=== PATIENT | male | born 1995 | race African-American/Black ===

== ENCOUNTER 2016-11-24 12:39 | Outpatient (RCR) | payer MEDICARE, MEDICAID ==
[~2016-11-24 12:39] MED LIST: BACTRIM DS 8001 TAB; FLOXIN OTIC DROP5 ML; LEVAQUIN 5500 MG/TA1 PO; LYRICA 50MG CAP50 MG; NORCO 325 MG-51 TAB PO; OXY IR5 MG; PROVENTIL0.09 MG/A1 IH; PULMICORT180 MCG/A1 IH; SINGULAIR; ZYRTEC 10MG10 MG
== END 2017-02-22 | disposition home or self-care (01) ==
LOC: WSST
DX: R13.10 Dysphagia, unspecified (principal); G71.0 Muscular dystrophy
CPT/HCPCS: G8996-GN; G8997-GN

== ENCOUNTER 2018-05-04 20:35 | Emergency (ER) | payer MEDICARE, MEDICAID ==
[~2018-05-04] VITALS: Ht 172.7 cm; Wt 70.5 kg
[2018-05-04 20:37] VITALS: BP 169/105; TEMP 98.2
[2018-05-04] MEDS ORDERED: PAMELOR 25MG25 MG PO (20:54)
[2018-05-04 21:23] LABS: BASO % 0.7 % (0.0-2.0); EOS % 0.4 % (0-4.0); GRAN % 52.9 % (42.2-75.2); HEMATOCRIT 44.1 % (42.0-52.0); HEMOGLOBIN 15.3 g/dl (13.5-18.0); LYMPH # 2.1 (1.2-3.4); LYMPH % 36.7 % (20.0-51.0); MEAN CELL VOLUME 88 fl (80.0-100.0); MEAN CORPUSCULAR HEMOGLOBIN 31 pg (27.0-31.0); MEAN CORPUSCULAR HGB CONC 35 g/dl (33.0-37.0); MEAN PLATELET VOLUME 10.1 fl (7.4-10.4); MONO # 0.5 (0.1-0.6); MONO % 8.9 % (1.7-9.3); PLATELET COUNT 288 K/mm3 (130-400); RED BLOOD COUNT 4.99 M/mm3 (4.20-5.60); REDCELL DISTRIBUTION WIDTH-CV 12.7 % (11.5-14.5)
[2018-05-04 21:34] LABS: ALBUMIN 3.8 gm/dL (3.5-5.0); BILIRUBIN,TOTAL 0.5 mg/dL (0.0-1.0); CALCIUM 9.1 mg/dL (8.4-10.2); CREATININE, serum 0.57 mg/dL (0.66-1.25); POTASSIUM 3.3 mmol/L (3.4-5.0); TOTAL PROTEIN 6.9 gm/dL (6.4-8.2)
[2018-05-04 22:11] LABS: COLLECTION METHOD CLEAN CATCH
[2018-05-04 22:16] LABS: MUCOUS Present /lpf; PH 7 (5-8); SQUAMOUS EPITHELIAL None Seen /hpf; URINE APPEARANCE Clear; URINE BACTERIA None Seen /hpf; URINE BILIRUBIN Negative (NEGATIVE); URINE BLOOD Negative (NEGATIVE); URINE COLOR Straw; URINE GLUCOSE Negative (NEGATIVE); URINE KETONE Negative (NEGATIVE); URINE LEUKOCYTE ESTERASE Negative (NEGATIVE); URINE NITRATE Negative (NEGATIVE); URINE PROTEIN(semi-quant) Negative (NEGATIVE); URINE RBC 0-2 /hpf; URINE UROBILINOGEN Negative (NEGATIVE)
[2018-05-04] MEDS ORDERED: LIDODERM 5% PATC1 EA TP (22:30)
[2018-05-04 23:29] VITALS: PULSE 83
== END 2018-05-04 23:31 | disposition home or self-care (01) ==
LOC: COL.ER 20:35
PROVIDERS: Emergency Medicine
DX: K22.6 Gastro-esophageal laceration-hemorrhage syndrome (principal); M54.2 Cervicalgia; R11.10 Vomiting, unspecified
CPT/HCPCS: J0780; J1885; J7030

== ENCOUNTER 2019-06-26 19:22 | Emergency (ER) | payer MEDICARE, MEDICAID ==
[~2019-06-26] VITALS: Ht 170.2 cm; Wt 72.7 kg
[~2019-06-26 19:22] MED LIST changes: +LIDODERM 5% PATC1 EA TP; +PAMELOR 25MG25 MG PO
[2019-06-26 19:33] VITALS: TEMP 98.4
[2019-06-26] MEDS ORDERED: ROXICODONE 55 MG/TAB PO (21:56)
[2019-06-26] MEDS ORDERED: FLEXERIL 1010 MG/TAB PO (21:56)
[2019-06-26] MEDS ORDERED: ADDERALL10 MG PO (21:56)
[2019-06-26] MEDS ORDERED: DOXYCYCLINE 10100 MG PO (21:56)
[2019-06-26] MEDS ORDERED: MOBIC15 MG PO (21:57)
[2019-06-26] MEDS ORDERED: PEPCID 20MG TAB20 MG PO (21:57)
[2019-06-26] MEDS ORDERED: NORCO 325 MG-51 TAB PO (22:46)
[2019-06-27 00:07] VITALS: BP 128/94; PULSE 92
== END 2019-06-27 00:07 | disposition home or self-care (01) ==
LOC: COL.ER 19:22
DX: M54.9 Dorsalgia, unspecified (principal); J45.909 Unspecified asthma, uncomplicated

== ENCOUNTER 2020-08-19 09:30 | Outpatient (RCR) | payer MEDICARE, MEDICAID ==
[~2020-08-19 09:30] MED LIST changes: +ADDERALL10 MG PO; +DOXYCYCLINE 10100 MG PO; +FLEXERIL 1010 MG/TAB PO; +MOBIC15 MG PO; +PEPCID 20MG TAB20 MG PO; +ROXICODONE 55 MG/TAB PO
== END 2020-08-20 | disposition home or self-care (01) ==
LOC: WSPT
DX: M79.18 Myalgia, other site (principal); R26.9 Unspecified abnormalities of gait and mobility; R53.1 Weakness

== ENCOUNTER 2020-11-04 10:00 | Outpatient (RCR) | payer MEDICARE, MEDICAID | END 2020-11-24 | disposition home or self-care (01) | LOC: WSPT | DX: M79.10 Myalgia, unspecified site (principal); R26.9 Unspecified abnormalities of gait and mobility; R53.1 Weakness ==

== ENCOUNTER 2021-01-21 15:41 | Observation (INO) | payer MEDICARE, MEDICAID ==
[~2021-01-21] VITALS: Ht 170.2 cm; Wt 71.8 kg
[2021-01-21 16:01] LABS: BASO % 0.3 % (0.0-2.0); EOS % 0.3 % (0-4.0); GRAN # 10.6 (1.4-6.5); GRAN % 89.5 % (42.2-75.2); HEMATOCRIT 50.5 % (42.0-52.0); HEMOGLOBIN 17.1 g/dl (13.5-18.0); LYMPH # 0.5 (1.2-3.4); LYMPH % 3.8 % (20.0-51.0); MEAN CELL VOLUME 91 fl (80.0-100.0); MEAN CORPUSCULAR HEMOGLOBIN 31 pg (27.0-31.0); MEAN CORPUSCULAR HGB CONC 34 g/dl (33.0-37.0); MEAN PLATELET VOLUME 10.1 fl (7.4-10.4); MONO # 0.7 (0.1-0.6); MONO % 5.7 % (1.7-9.3); PLATELET COUNT 291 K/mm3 (130-400); RED BLOOD COUNT 5.56 M/mm3 (4.20-5.60); REDCELL DISTRIBUTION WIDTH-CV 12.8 % (11.5-14.5)
[2021-01-21 16:13] LABS: ALBUMIN 4.4 gm/dL (3.5-5.0); BILIRUBIN,TOTAL 1.2 mg/dL (0.0-1.0); CALCIUM 9.7 mg/dL (8.4-10.2); CREATININE, serum 0.53 (0.66-1.25); POTASSIUM 4.4 mmol/L (3.4-5.0); TOTAL PROTEIN 7.4 gm/dL (6.4-8.2)
[2021-01-21 18:48] LABS: COLLECTION METHOD CLEAN CATCH
[2021-01-21 18:59] LABS: MUCOUS Present /lpf; PH 7 (5-8); SQUAMOUS EPITHELIAL None Seen /hpf; URINE APPEARANCE Clear; URINE BACTERIA None Seen /hpf; URINE BILIRUBIN Negative (NEGATIVE); URINE BLOOD Negative (NEGATIVE); URINE COLOR Yellow; URINE GLUCOSE Negative (NEGATIVE); URINE KETONE 1+ (NEGATIVE); URINE LEUKOCYTE ESTERASE Negative (NEGATIVE); URINE NITRATE Negative (NEGATIVE); URINE PROTEIN(semi-quant) Negative (NEGATIVE); URINE RBC 0-2 /hpf; URINE UROBILINOGEN Negative (NEGATIVE)
[2021-01-21] MEDS ORDERED: PROVENTIL0.09 MG/A1 IH (19:37)
[2021-01-21] MEDS ORDERED: ATIVAN 0.50.5 MG/TAB PO (19:38)
[2021-01-21] MEDS ORDERED: ZYRTEC 10MG10 MG PO (19:39)
[2021-01-21] MEDS ORDERED: FLEXERIL5 MG PO (19:40)
[2021-01-21] MEDS ORDERED: SINGULAIR 110 MG/TAB PO (19:40)
[2021-01-21] MEDS ORDERED: MOBIC15 MG PO (19:40)
[2021-01-21] MEDS ORDERED: PAMELOR50 MG PO (19:40)
[2021-01-21] MEDS ORDERED: FLONASEALLERGY NS (19:40)
[2021-01-21] MEDS ORDERED: ROXICODONE 55 MG/TAB PO (19:41)
[2021-01-21] MEDS ORDERED: LYRICA 100MG C100 M1 PO (19:41)
[2021-01-21 21:33] VITALS: BP 130/82; PULSE 86; TEMP 98.2
--- NOTE | 2021-01-21 22:48 | NUR ---
2114- PT ADMIT FROM ER W C/O NAUSEA AND VOMITING SINCE 9AM. OCC HAS SOME RT LOWER ABD PAIN AND STATES TAKES DOXCYCLINE? FOR THIS HOWEVER WONDERS IF ITS MAKING HIM SICK SINCE IT WAS RECENTLY RESTARTED. STATES HIS VOMIT WAS COFFEE GROUND IN LOOKS AND HAD BLOODY STOOL. CLEAR VOMIT OBS HERE IN ER THIS EVENING. NO VOMITING SINCE BEING ON UNIT. HE DID EAT PEPERS BEFORE BEDTIME AND TOOK A OXYCODONE ON A EMPTY STOMACH ABOUT 2AM. ASSESSMENT AND VITALS OBTAINED. ORDERS INITATED. IV FLUIDS, SCD, PM MEDS PROVIDED. PLAN OF CARE DISCUSSED. IS SLOW W SPEECH RESPONSE BUT APPRO AND PLEASENT. CALL LIGHT W IN REACH. UP TO BR W NURSE ASST. LIGHTS DOWN AND EYES CLOSED WHEN LEAVING ROOM.
[2021-01-22 00:13] VITALS: BP 131/65; PULSE 106; TEMP 99
[2021-01-22 04:36] VITALS: BP 140/61; PULSE 103; TEMP 98.3
--- NOTE | 2021-01-22 04:48 | NUR ---
PT RESTED MOST OF THE NIGHT. DID AMBULATE WITH WALKER TO BR W DISPATCH CLERK AND FELT NAUSEATED. TX OF ZOFRAN 4MG IV. DENIES PAIN. NEEDS MET.
[2021-01-22 06:35] LABS: BASO % 0.2 % (0.0-2.0); EOS % 0.6 % (0-4.0); GRAN # 4.1 (1.4-6.5); GRAN % 74.6 % (42.2-75.2); HEMATOCRIT 42.5 % (42.0-52.0); LYMPH # 0.8 (1.2-3.4); LYMPH % 14.9 % (20.0-51.0); MEAN CELL VOLUME 92 fl (80.0-100.0); MEAN CORPUSCULAR HEMOGLOBIN 30 pg (27.0-31.0); MEAN CORPUSCULAR HGB CONC 33 g/dl (33.0-37.0); MEAN PLATELET VOLUME 10.6 fl (7.4-10.4); MONO # 0.5 (0.1-0.6); MONO % 9.7 % (1.7-9.3); PLATELET COUNT 256 K/mm3 (130-400); RED BLOOD COUNT 4.64 M/mm3 (4.20-5.60); REDCELL DISTRIBUTION WIDTH-CV 13.1 % (11.5-14.5)
[2021-01-22 06:47] LABS: HEMOGLOBIN 14.1 g/dl (13.5-18.0)
[2021-01-22 06:52] LABS: CALCIUM 8.9 mg/dL (8.4-10.2); CREATININE, serum 0.61 (0.66-1.25); POTASSIUM 3.9 mmol/L (3.4-5.0)
[2021-01-22 08:21] VITALS: BP 121/65; PULSE 107; TEMP 98.6
--- NOTE | 2021-01-22 09:00 | NUR ---
Patient sitting up in bed, stating that he is feeling nauseous. Nurse brought out the BSC and assisted patient. Patient A&Ox3. VSS. IV CDI, fluids infusing. Nurse encouraging patient to eat and to call nursing staff if still feeling nauseous. Call light within reach.
--- NOTE | 2021-01-22 10:15 | NUR ---
LISET met with the patient to discuss discharge plan. The patient states that he lives with his two sisters and uncle in [place]. He states that his mother just . The patient has muscular dystrophy. He reports independence with ADLs and has a cane and wheelchair. The patient's PCP is Dr. Consuelo Dozier and he receives his medications from [facility]. The patient states that he may have a DPOA-HC and that it would be his sister, Susana (ph#[phone]). The patient states that he has some concerns about his dizziness and nausea when he returns home. LISET contacted the patient's sister, Susana, to review the above information. Susana reports that she lives in [place]. Their mother last week. The patient had been living with his uncle and two sisters, but since his mother he has been living alone. She states that they want to get the patient into a handicap accessible apartment/home. They have not started looking or applying for public housing yet. LISET informed Susana of [facility] and [employer]. Susana reports that the patient does not have a DPOA-HC. She states that the patient's father is still alive, but has not been in contact with him since he was [id number]. The patient has four sisters, one is adopted: Susana, Nasima, Nina, and Mackenzie. Susana reports that it will be the patient's decision on whether he returns to the house in [place] or wants to stay with one of them. She states that she also takes care of their disabled cousin. LISET to ask the clinical team to order PT/OT. LISET to continue to follow.
[2021-01-22 11:13] VITALS: BP 138/80; PULSE 103; TEMP 98.3
[2021-01-22 17:19] VITALS: BP 134/83; PULSE 102; TEMP 97.9
--- NOTE | 2021-01-22 17:44 | NUR ---
Patient has had complaints of nausea throughout the shift, nausea medication given when requested. A&O, VSS. IV CDI, fluids infusing. Patient stating that he is dizzy when ambulating, nursing staff using BS. Reports only having a headache, denies other pain. Patient on contact precautions. Nurse instructed patient to call for assistance as needed. Call light within reach. Bed alarm on
[2021-01-22 19:44] VITALS: BP 147/105; PULSE 116; TEMP 97.8
--- NOTE | 2021-01-22 21:01 | NUR ---
PT SETTING UP ON EDGE OF BED, ASSESSMENT AND VITALS COMPLETE. C/O FRANCES RATES PAIN 4/10. GETTING DIZZY WHEN STANDING. COMMODE AT BEDSIDE. C/O SOME NAUSEA STILL THIS EVENING BUT IS ABLE TO TOLERATE SOME DINNER. WILL BE NPO AT MIDNIGHT FOR EDG IN AM. PLAN OF CARE DISCUSSED WITH PT. NEEDS MET. ON CONTACT PRECAUTIONS.
[2021-01-23] VITALS (13 sets, daily range): BP systolic 125–144; BP diastolic 60–90; PULSE 85–98; TEMP 97.7–98.8
--- NOTE | 2021-01-23 04:54 | NUR ---
PT SLEPT MOST OF THE NIGHT WO INCIDENT. DID NOT COMPLAIN OF NAUSEA EXCEPT ONCE AT BEGINING OF SHIFT. NPO FOR EGD THIS AM. CLEAN GOWN ON. NEED TO COLLECT STOOL SAMPLE, NO STOOL YET. IV FLUIDS RUNNING PER ORDER OF 30CC NS. LR BAG HANGING AT BEDSIDE FOR SUPERVISOR FORMING DEPARTMENT. NEEDS MET.
--- NOTE | 2021-01-23 07:20 | NUR ---
Patient to EGD by samuel
[2021-01-23 07:24] LABS: HEMATOCRIT 42.3 % (42.0-52.0); HEMOGLOBIN 13.8 g/dl (13.5-18.0); MEAN CELL VOLUME 94 fl (80.0-100.0); MEAN CORPUSCULAR HEMOGLOBIN 31 pg (27.0-31.0); MEAN CORPUSCULAR HGB CONC 33 g/dl (33.0-37.0); MEAN PLATELET VOLUME 10.9 fl (7.4-10.4); PLATELET COUNT 269 K/mm3 (130-400)
[2021-01-23 07:40] LABS: BILIRUBIN,TOTAL 0.6 mg/dL (0.0-1.0); CALCIUM 9.3 mg/dL (8.4-10.2); CREATININE, serum 0.63 (0.66-1.25); POTASSIUM 3.8 mmol/L (3.4-5.0); TOTAL PROTEIN 6.6 gm/dL (6.4-8.2)
--- NOTE | 2021-01-23 08:35 | NUR ---
Patient up to room from EGD.
--- NOTE | 2021-01-23 11:41 | NUR ---
Patient up to BSC with x1 assist and walker. Orthostatic BP charted at this time. Patient states he feels light headed and dizzy when changing positions. Denies further needs at this time.
--- NOTE | 2021-01-23 15:09 | NUR ---
OT recommends home. PT recommends plan to return home with home health depending on progress. SW met with the patient discuss their recommendation and review d/c plan and possibly needing a FWW. The patient states that he does have a FWW. He reports that he is feeling better and that he could return to his house by himself upon discharge. SW discussed getting home health services set up for alf/OT/PT. The patient was open to home health and was agreeable to [facility]. LISET contacted and faxed a referral to Lilly at [facility]. Awaiting screen. LISET attempted to contact and update the patient's sister, Susana. Her voicemail was not set up and LISET was unable to leave a message.
--- NOTE | 2021-01-23 16:44 | NUR ---
ST in with patient.
--- NOTE | 2021-01-23 18:25 | NUR ---
Patient doing well throughout the day. has been up ambulating to restroom with SBA and walker, steady gait. Patient states mild headach this afternoon, tylenol given per orders. States he does not feel as dizzy as he did early this AM. Patient passing gas; no BM. Tolerating diet without difficulties. Denies further needs at this time. Will report off to manager shift.
[2021-01-24 00:10] VITALS: BP 144/72; PULSE 93; TEMP 98.3
[2021-01-24 04:26] VITALS: BP 124/72; PULSE 89; TEMP 97.6
[2021-01-24 06:38] LABS: HEMATOCRIT 43.7 % (42.0-52.0); HEMOGLOBIN 14.7 g/dl (13.5-18.0); MEAN CELL VOLUME 91 fl (80.0-100.0); MEAN CORPUSCULAR HEMOGLOBIN 31 pg (27.0-31.0); MEAN CORPUSCULAR HGB CONC 34 g/dl (33.0-37.0); MEAN PLATELET VOLUME 10.2 fl (7.4-10.4); PLATELET COUNT 296 K/mm3 (130-400); RED BLOOD COUNT 4.78 M/mm3 (4.20-5.60)
[2021-01-24 06:49] LABS: CALCIUM 9.6 mg/dL (8.4-10.2); CREATININE, serum 0.6 (0.66-1.25); POTASSIUM 3.5 mmol/L (3.4-5.0)
[2021-01-24 07:00] VITALS: BP 133/86; PULSE 83; TEMP 98.5
--- NOTE | 2021-01-24 08:00 | NUR ---
Patient laying in bed resting. Easily awakened with verbal command, denies pain and discomfort. A&Ox3. IV CDI. Contact precautions in place. No further needs expressed from the patient. Nurse instructed patient to call for assistance with ambulation. Call light within reach
[2021-01-24 12:00] VITALS: BP 153/83; PULSE 99; TEMP 98.5
[2021-01-24 15:21] VITALS: BP 146/94; PULSE 101; TEMP 98.4
--- NOTE | 2021-01-24 17:43 | NUR ---
Patient rested most of the shift. VSS. IV CDI, only complaints of a headache, tylenol given when requested. Contact precautions in place. Call light within reach. No further needs expressed from the patient.
[2021-01-24 19:11] VITALS: BP 118/104; PULSE 100; TEMP 97.4
--- NOTE | 2021-01-24 20:19 | NUR ---
Patient is awake, alert, oriented x 4, telemetry in use, independent in adls, denies pain, telemetry patches/batteries changed, updated patient on plan of care, no c/o n,v,d. will continue to monitor.
[2021-01-25] VITALS (7 sets, daily range): BP systolic 123–151; BP diastolic 76–90; PULSE 84–112; TEMP 97.4–99.1
[2021-01-25 09:22] LABS: BASO % 0.5 % (0.0-2.0); EOS # 0.1 (0.0-0.7); EOS % 1.4 % (0-4.0); GRAN # 3.4 (1.4-6.5); GRAN % 59.2 % (42.2-75.2); HEMATOCRIT 44.4 % (42.0-52.0); HEMOGLOBIN 15.2 g/dl (13.5-18.0); LYMPH # 1.5 (1.2-3.4); LYMPH % 26.6 % (20.0-51.0); MEAN CELL VOLUME 90 fl (80.0-100.0); MEAN CORPUSCULAR HEMOGLOBIN 31 pg (27.0-31.0); MEAN CORPUSCULAR HGB CONC 34 g/dl (33.0-37.0); MEAN PLATELET VOLUME 10.3 fl (7.4-10.4); MONO # 0.7 (0.1-0.6); MONO % 12.1 % (1.7-9.3); PLATELET COUNT 310 K/mm3 (130-400); RED BLOOD COUNT 4.91 M/mm3 (4.20-5.60); REDCELL DISTRIBUTION WIDTH-CV 12.8 % (11.5-14.5)
[2021-01-25 09:34] LABS: ALBUMIN 4.4 gm/dL (3.5-5.0); BILIRUBIN,TOTAL 0.5 mg/dL (0.0-1.0); CALCIUM 9.6 mg/dL (8.4-10.2); CREATININE, serum 0.58 (0.66-1.25); POTASSIUM 3.6 mmol/L (3.4-5.0); TOTAL PROTEIN 7.2 gm/dL (6.4-8.2)
[2021-01-25] MEDS ORDERED: ZOFRAN 4MG T4 MG/TAB PO (10:27)
[2021-01-25] MEDS ORDERED: ANTIVERT 25MG25 MG PO (10:27)
[2021-01-25] MEDS ORDERED: PROTONIX 40MG T40 MG PO (10:33)
--- NOTE | 2021-01-25 14:12 | NUR ---
LISET informed that patient was to be discharged today, but did not have a ride home. LISET met with patient and patient stated that he did not need a ride as he already had a ride home, but was informed by that he could not go home if there was not going to be anyone at the home with him this evening. LISET met with nurse to inform her of the information and she stated that she would speak to Dr in regards to patient's information relayed. LISET will continue to follow and assist with following up with [facility] to receive response in regards to services.
--- NOTE | 2021-01-25 18:14 | NUR ---
PT WAS SUPPOSED TO DISCHARGE TODAY, HOWEVER, THERE ARE SOME HOME ISSUES WITH THE PATIENT GOING HOME ALONE. THE SISTER THAT THE PATIENT HAS BEEN LIVING WITH IS NO LONGER GOING TO BE ABLE TO HAVE HIM LIVE WITH HER, AND SO THE PATIENT IS MOVING IN WITH HIS OTHER SISTER. THERE IS DISCUSSION OF THE PATIENT MOVING INTO A SKILLED NURSING SETTING, HOWEVER, THE SISTER HAS YET TO RESEARCH THESE OPTIONS. THE PATIENT WAS SET TO DISCHARGE, AND HE TOLD US AFTER WE DISCONTINUED HIS IV THAT HE WOULD NEED A RIDE HOME, AND THAT HE WAS CONCERNED BECAUSE THE DOCTOR TOLD HIM HE WAS NOT TO BE HOME ALONE. SW WILL NEED TO DISCUSS ISSUES WITH THE FAMILY BEFORE DISCHARGING TOMORROW. THERE ARE NO OTHER CONCERNS AT THIS TIME. CALL LIGHT IS WITHIN REACH, AND BED ALARM IS ON.
--- NOTE | 2021-01-25 20:28 | NUR ---
Awake, alert, oriented x 4, able to make needs known, denies c/o at this time, patient updated on plan of care - anticipating d/c home tomorrow.
--- NOTE | 2021-01-25 20:37 | NUR ---
PATIENT HAS ORDER FOR IV PROTONIX 40MG BID. NO IV ACCESS PATIENT WAS SUPPOSE TO DC HOME THIS AM. CALL TO HOSPITALIST. ARIADNE FOR NO IV ACCESS AND WILL CHANGE PROTONIX TO ORAL ADMINISTRATION.
--- NOTE | 2021-01-25 23:17 | NUR ---
Resting quietly, no c/o at this time, uses call galvez appropriately, denies pain, uses walker with SBA to bathroom, good appetite, will continue to monitor.
[2021-01-26 04:14] VITALS: BP 138/76; PULSE 103; TEMP 98.2
[2021-01-26 06:48] LABS: BASO % 0.5 % (0.0-2.0); EOS # 0.1 (0.0-0.7); EOS % 1.4 % (0-4.0); GRAN # 3.3 (1.4-6.5); GRAN % 55.8 % (42.2-75.2); HEMATOCRIT 44.5 % (42.0-52.0); HEMOGLOBIN 14.8 g/dl (13.5-18.0); LYMPH # 1.7 (1.2-3.4); LYMPH % 29.4 % (20.0-51.0); MEAN CELL VOLUME 91 fl (80.0-100.0); MEAN CORPUSCULAR HEMOGLOBIN 30 pg (27.0-31.0); MEAN CORPUSCULAR HGB CONC 33 g/dl (33.0-37.0); MEAN PLATELET VOLUME 10.4 fl (7.4-10.4); MONO # 0.7 (0.1-0.6); MONO % 12.6 % (1.7-9.3); PLATELET COUNT 309 K/mm3 (130-400); RED BLOOD COUNT 4.89 M/mm3 (4.20-5.60); REDCELL DISTRIBUTION WIDTH-CV 12.8 % (11.5-14.5)
--- NOTE | 2021-01-26 07:00 | NUR ---
RECEIVED REPORT ON PT. ASSUMED CARE OF PT AT THIS TIME.
[2021-01-26 07:02] LABS: ALBUMIN 4.3 gm/dL (3.5-5.0); BILIRUBIN,TOTAL 0.5 mg/dL (0.0-1.0); CALCIUM 9.8 mg/dL (8.4-10.2); CREATININE, serum 0.7 (0.66-1.25); POTASSIUM 3.7 mmol/L (3.4-5.0)
[2021-01-26 07:55] VITALS: BP 138/97; PULSE 106; TEMP 98.9
--- NOTE | 2021-01-26 10:00 | NUR ---
PT'S SISTER AT BEDSIDE FOR TRANSPORTATION HOME. PT'S HAS DISCHARGE INSTRUCTIONS AT BEDSIDE FROM YESTERDAY. REVIEWED MEDICATIONS AGAIN AND PT HAS MADE FOLLOW UP APPT. NO IV IN PLACE UPON DISCHARGE AND TELEMETRY OFF. DR. ALCALA AT BEDSIDE SPEAKING WITH PT AND STATES PT IS READY FOR DISCHARGE. PT DEPARTED VIA W/C WITH SISTER.
--- NOTE | 2021-01-26 10:30 | NUR ---
LISET attended clinical rounds. The patient's sister, Susana, was at bedside. The patient is ready to d/c today. LISET followed up with the patient and Susana. Susana reports that she owns and lives in a duplex and the plan is for the patient to stay in the duplex, so that she can check in on him. She reports that she plans on going to [employer] to get an application to be able to get the patient a handicap accessible apartment. The patient reports that he is still open to home health from [facility]. LISET followed up with Lilly at [facility]. Lilly reports that they are able to accept the patient. LISET informed Lilly of the address change. The patient is to discharge today, 01/26, to his sister's duplex in [place] and home health services from [facility] for longterm/PT/OT. LISET faxed d/c orders to [facility]. No additional needs at this time.
== END 2021-01-26 10:15 | disposition home or self-care (01) ==
LOC: COL.ER 15:41 → MEDICAL 20:48
PROVIDERS: Emergency Medicine; Family Medicine; Nurse Practitioner Family; Physician Assistant; ADMIT Hospitalist
DX: A08.11 Acute gastroenteropathy due to Norwalk agent (principal); K92.0 Hematemesis; J45.909 Unspecified asthma, uncomplicated; G71.00 Muscular dystrophy, unspecified; G89.29 Other chronic pain; D72.829 Elevated white blood cell count, unspecified; R74.01 Elevation of levels of liver transaminase levels; R00.0 Tachycardia, unspecified; R13.10 Dysphagia, unspecified; R55 Syncope and collapse; F32.9 Major depressive disorder, single episode, unspecified; F41.9 Anxiety disorder, unspecified; F90.9 Attention-deficit hyperactivity disorder, unspecified type; Z20.822 Contact with and (suspected) exposure to COVID-19; Z79.891 Long term (current) use of opiate analgesic; Z79.899 Other long term (current) drug therapy; Z88.1 Allergy status to other antibiotic agents
CPT/HCPCS: 99223-AI; 99233-AI; 99239; C9113; G0378; J2405; J2704; J2765; J7030; J7120; Q9967

== ENCOUNTER 2021-01-27 22:25 | Emergency (ER) | payer MEDICARE, MEDICAID ==
[~2021-01-27] VITALS: Ht 167.6 cm; Wt 81.8 kg
[~2021-01-27 22:25] MED LIST changes: +ANTIVERT 25MG25 MG PO; +ATIVAN 0.50.5 MG/TAB PO; +FLEXERIL5 MG PO; +FLONASEALLERGY NS; +LYRICA 100MG C100 M1 PO; +PAMELOR50 MG PO; +PROTONIX 40MG T40 MG PO; +SINGULAIR 110 MG/TAB PO; +ZOFRAN 4MG T4 MG/TAB PO; +ZYRTEC 10MG10 MG PO
[2021-01-27 22:29] VITALS: TEMP 98.6
[2021-01-27 23:06] LABS: ALANINE AMINOTRANSFERASE 123 U/L (4-49); ALBUMIN 4.6 gm/dL (3.5-5.0); ALKALINE PHOSPHATASE 91 U/L (50-136); ANION GAP 9 mmol/L (7-16); AST,SGOT 87 U/L (15-37); BASO # 0.1 (0.0-0.2); BASO % 0.9 % (0.0-2.0); BILIRUBIN,TOTAL 0.5 mg/dL (0.0-1.0); BLOOD UREA NITROGEN 9 mg/dL (9-20); CALCIUM 9.3 mg/dL (8.4-10.2); CARBON DIOXIDE 30 mmol/L (22-30); CHLORIDE 102 mmol/L (98-107); CREATININE, serum 0.75 (0.66-1.25); EOS # 0.2 (0.0-0.7); EOS % 1.8 % (0-4.0); GLUCOSE 117 mg/dL (74-106); GRAN # 4.2 (1.4-6.5); GRAN % 44.7 % (42.2-75.2); HEMATOCRIT 44.9 % (42.0-52.0); HEMOGLOBIN 15.5 g/dl (13.5-18.0); LYMPH # 4.1 (1.2-3.4); LYMPH % 43.8 % (20.0-51.0); MEAN CELL VOLUME 90 fl (80.0-100.0); MEAN CORPUSCULAR HEMOGLOBIN 31 pg (27.0-31.0); MEAN CORPUSCULAR HGB CONC 35 g/dl (33.0-37.0); MEAN PLATELET VOLUME 10.1 fl (7.4-10.4); MONO # 0.8 (0.1-0.6); MONO % 8.5 % (1.7-9.3); POTASSIUM 3.6 mmol/L (3.4-5.0); RED BLOOD COUNT 5.01 M/mm3 (4.20-5.60); REDCELL DISTRIBUTION WIDTH-CV 12.7 % (11.5-14.5); SODIUM 141 mmol/L (137-145); TOTAL PROTEIN 7.5 gm/dL (6.4-8.2)
[2021-01-27 23:11] LABS: PLATELET COUNT 440 K/mm3 (130-400)
[2021-01-27 23:17] LABS: TROPONIN-I < 0.012 ng/mL (0.000-0.035)
[2021-01-28 00:08] LABS: COLLECTION METHOD CLEAN CATCH
[2021-01-28 00:14] LABS: MUCOUS Present /lpf; PH 5 (5-8); SQUAMOUS EPITHELIAL None Seen /hpf; URINE APPEARANCE Clear; URINE BACTERIA None Seen /hpf; URINE BILIRUBIN Negative (NEGATIVE); URINE BLOOD Negative (NEGATIVE); URINE COLOR Yellow; URINE GLUCOSE Negative (NEGATIVE); URINE KETONE Negative (NEGATIVE); URINE LEUKOCYTE ESTERASE Negative (NEGATIVE); URINE NITRATE Negative (NEGATIVE); URINE PROTEIN(semi-quant) Negative (NEGATIVE); URINE RBC 0-2 /hpf; URINE UROBILINOGEN Negative (NEGATIVE)
[2021-01-28 00:40] VITALS: BP 122/78; PULSE 81
== END 2021-01-28 00:45 | disposition home or self-care (01) ==
LOC: COL.ER 22:25
PROVIDERS: Physician Assistant
DX: E86.0 Dehydration (principal); G71.00 Muscular dystrophy, unspecified; R06.02 Shortness of breath; J45.909 Unspecified asthma, uncomplicated; F90.9 Attention-deficit hyperactivity disorder, unspecified type; Z88.1 Allergy status to other antibiotic agents; G89.29 Other chronic pain; Z79.891 Long term (current) use of opiate analgesic
CPT/HCPCS: J7030

== ENCOUNTER 2021-04-03 04:31 | Observation (INO) | payer MEDICARE, MEDICAID ==
[~2021-04-03] VITALS: Ht 180.3 cm; Wt 86.4 kg
[2021-04-03 05:01] LABS: BASO # 0.1 (0.0-0.2); BASO % 0.7 % (0.0-2.0); EOS # 0.1 (0.0-0.7); EOS % 1.8 % (0-4.0); GRAN # 3.1 (1.4-6.5); GRAN % 42.4 % (42.2-75.2); HEMOGLOBIN 15.6 g/dl (13.5-18.0); LYMPH # 3.4 (1.2-3.4); LYMPH % 45.9 % (20.0-51.0); MEAN CELL VOLUME 90 fl (80.0-100.0); MEAN CORPUSCULAR HEMOGLOBIN 31 pg (27.0-31.0); MEAN CORPUSCULAR HGB CONC 35 g/dl (33.0-37.0); MEAN PLATELET VOLUME 9.8 fl (7.4-10.4); MONO # 0.7 (0.1-0.6); MONO % 8.8 % (1.7-9.3); PLATELET COUNT 340 K/mm3 (130-400); REDCELL DISTRIBUTION WIDTH-CV 12.6 % (11.5-14.5)
[2021-04-03 05:11] LABS: ALANINE AMINOTRANSFERASE 210 U/L (4-49); ALBUMIN 4.6 gm/dL (3.5-5.0); ALKALINE PHOSPHATASE 75 U/L (50-136); ANION GAP 10 mmol/L (7-16); AST,SGOT 137 U/L (15-37); BILIRUBIN,TOTAL 0.5 mg/dL (0.0-1.0); BLOOD UREA NITROGEN 6 mg/dL (9-20); CALCIUM 9.2 mg/dL (8.4-10.2); CARBON DIOXIDE 27 mmol/L (22-30); CHLORIDE 103 mmol/L (98-107); CREATININE, serum 0.56 (0.66-1.25); GLUCOSE 105 mg/dL (74-106); POTASSIUM 3.2 mmol/L (3.4-5.0); SODIUM 139 mmol/L (137-145); TOTAL PROTEIN 7.9 gm/dL (6.4-8.2)
[2021-04-03 05:17] LABS: ALCOHOL(ethanol),MEDICAL < 10 mg/dL
[2021-04-03] MEDS ORDERED: ZOFRAN ODT4 MG PO (06:10)
[2021-04-03 07:20] LABS: COLLECTION METHOD CLEAN CATCH
[2021-04-03 07:31] LABS: MUCOUS Present /lpf; PH 7 (5-8); SQUAMOUS EPITHELIAL None Seen /hpf; URINE APPEARANCE Clear; URINE BACTERIA None Seen /hpf; URINE BILIRUBIN Negative (NEGATIVE); URINE BLOOD Negative (NEGATIVE); URINE COLOR Straw; URINE GLUCOSE Negative (NEGATIVE); URINE KETONE Negative (NEGATIVE); URINE LEUKOCYTE ESTERASE Negative (NEGATIVE); URINE NITRATE Negative (NEGATIVE); URINE PROTEIN(semi-quant) Negative (NEGATIVE); URINE RBC 0-2 /hpf; URINE UROBILINOGEN Negative (NEGATIVE); URINE WBC 0-2 /hpf
[2021-04-03] MEDS ORDERED: MOBIC15 MG PO (07:36)
[2021-04-03 08:24] LABS: TRICYCLIC ANTIDEPRESS URINE POSITIVE
[2021-04-03 11:26] VITALS: BP 118/70; PULSE 86; TEMP 98.2
[2021-04-03 15:08] LABS: MAGNESIUM 1.8 mg/dL (1.6-2.3)
[2021-04-03 15:22] LABS: TROPONIN-I < 0.012 ng/mL (0.000-0.035)
[2021-04-03 15:44] VITALS: BP 123/56; PULSE 117; TEMP 98.7
--- NOTE | 2021-04-03 16:12 | NUR ---
LISET met with the patient to discuss discharge plan. The patient lives in a duplex with his sister, Susana (ph#[phone]). He lives by himeself on one side of the duplex. He reports independence with ADLs and has a cane, walker, and wheelchair. The patient's PCP is Dr. Consuelo Dozier and he receives his medications from [email or web address]. He reports no difficulties obtaining his meds. The patient does not have a DPOA-HC, but he reports that he believes he has one completed and that it designates his sister, Susana. The patient plans to return home with his sister upon discharge. LISET discussed home health services. The patient reports that he is not interested in home health at this time. LISET then contacted and reviewed the above with his sister, Susana. Susana reports no concerns with the patient returning home upon discharge. Susana states that she does not think that the patient has a DPOA-HC. LISET then met with the patient to update. The patient was interested in completing a DPOA-HC while here. He verbalized that he would like to designate his sister, Susana. LISET and DONOR RECRUITERAramis, witnessed the patient's signature. LISET provided the patient with the original and some copies. LISET placed a copy in the patient's chart. LISET attempted to contact Susana back to update her about the DPOA-HC. Susana's voicemail has not been set up yet and LISET was unable to leave a message. *Discharge plan: home with sister*
--- NOTE | 2021-04-03 19:04 | NUR ---
Patient arrived from ED via wheelchair this morning. Patient resting intermittently, rouses easily, is alert and oriented while awake. Patient c/o leg pain that he reports is usual for him, administered scheduled lyrica and paitent reports he is feeling better now. Patient denies further needs, call light within reach.
--- NOTE | 2021-04-03 19:10 | NUR ---
Received report from Lorraine. Patient eating his dinner. Denies needs at this time.
[2021-04-03 19:57] VITALS: BP 120/58; PULSE 94; TEMP 98.4
--- NOTE | 2021-04-03 20:40 | NUR ---
Assesment done. Patient is a high fall risk. Assisted him to the bathroom. He uses cane. He is on room air. With IV on left forearm infusing LR at 125ml/hr. He denies headache or any pain. Neurochecks done. His left side is a bit weak. Call light within reach. Bed alarm on.
[2021-04-03 23:39] VITALS: BP 120/70; PULSE 87; TEMP 98.3
[2021-04-04 04:16] VITALS: BP 132/67; PULSE 86; TEMP 98.2
--- NOTE | 2021-04-04 06:30 | NUR ---
Patient states he still have mild headache. Pain score of 4/10. Maintained bed alarm on.
--- NOTE | 2021-04-04 07:00 | NUR ---
Report with CHRISTIANO Cleary. Pt resting in bed, preparing to order breakfast, requests Iced Sprite which is provided. No further needs reported. Call light in reach. Bed alarm on.
[2021-04-04 07:49] LABS: BASO % 0.5 % (0.0-2.0); EOS # 0.1 (0.0-0.7); EOS % 1.4 % (0-4.0); GRAN % 53.1 % (42.2-75.2); HEMATOCRIT 42.8 % (42.0-52.0); HEMOGLOBIN 14.5 g/dl (13.5-18.0); LYMPH # 2.1 (1.2-3.4); LYMPH % 36.6 % (20.0-51.0); MEAN CELL VOLUME 91 fl (80.0-100.0); MEAN CORPUSCULAR HEMOGLOBIN 31 pg (27.0-31.0); MEAN CORPUSCULAR HGB CONC 34 g/dl (33.0-37.0); MEAN PLATELET VOLUME 10.4 fl (7.4-10.4); MONO # 0.5 (0.1-0.6); MONO % 8.4 % (1.7-9.3); PLATELET COUNT 285 K/mm3 (130-400); RED BLOOD COUNT 4.71 M/mm3 (4.20-5.60); REDCELL DISTRIBUTION WIDTH-CV 12.4 % (11.5-14.5)
[2021-04-04 07:59] LABS: ALANINE AMINOTRANSFERASE 166 U/L (4-49); ALBUMIN 4.1 gm/dL (3.5-5.0); ALKALINE PHOSPHATASE 71 U/L (50-136); ANION GAP 8 mmol/L (7-16); AST,SGOT 91 U/L (15-37); BILIRUBIN,TOTAL 0.3 mg/dL (0.0-1.0); BLOOD UREA NITROGEN 7 mg/dL (9-20); CALCIUM 9.7 mg/dL (8.4-10.2); CARBON DIOXIDE 29 mmol/L (22-30); CHLORIDE 102 mmol/L (98-107); CREATININE, serum 0.56 (0.66-1.25); GLUCOSE 81 mg/dL (74-106); SODIUM 139 mmol/L (137-145); TOTAL PROTEIN 6.9 gm/dL (6.4-8.2)
[2021-04-04 08:12] LABS: TROPONIN-I < 0.012 ng/mL (0.000-0.035)
[2021-04-04 08:15] LABS: CREATINE KINASE 5379 U/L (55-170)
[2021-04-04 09:10] VITALS: PULSE 95; TEMP 98.2
[2021-04-04 12:00] VITALS: BP 133/76; PULSE 98; TEMP 98.8
--- NOTE | 2021-04-04 13:33 | NUR ---
Tele and IV discontinued with tip intact. Discharge instructions reviewed with pt regarding follow-up appointment and education. Pt verbalizes understanding, awaiting his sister to arrive with clothes for discharge.
--- NOTE | 2021-04-04 14:55 | NUR ---
Pt discharged home, ambulates out of facility accompanied by RAW HIDE TRIMMER and pt's sister.
== END 2021-04-04 14:57 | disposition home or self-care (01) ==
LOC: COL.ER 04:31 → MEDICAL 07:05
PROVIDERS: Emergency Medicine; Physician Assistant; ADMIT Hospitalist
DX: R79.82 Elevated C-reactive protein (CRP) (principal); G71.00 Muscular dystrophy, unspecified; R51.9 Headache, unspecified; R11.2 Nausea with vomiting, unspecified; E87.6 Hypokalemia; R94.31 Abnormal electrocardiogram [ECG] [EKG]; I49.9 Cardiac arrhythmia, unspecified; J45.909 Unspecified asthma, uncomplicated; F90.9 Attention-deficit hyperactivity disorder, unspecified type; G89.29 Other chronic pain; K21.9 Gastro-esophageal reflux disease without esophagitis; W18.39XA Other fall on same level, initial encounter; F41.9 Anxiety disorder, unspecified; Y92.009 Unspecified place in unspecified non-institutional (private) residence as the place of occurrence of the external cause; Z79.899 Other long term (current) drug therapy; Z79.1 Long term (current) use of non-steroidal anti-inflammatories (NSAID); W18.30XA Fall on same level, unspecified, initial encounter
CPT/HCPCS: G0378; J2405; J3480; J7030; J7050; J7120

== ENCOUNTER 2021-04-17 19:40 | Emergency (ER) | payer MEDICARE, MEDICAID ==
[~2021-04-17] VITALS: Ht 170.2 cm; Wt 76.4 kg
[~2021-04-17 19:40] MED LIST changes: +ZOFRAN ODT4 MG PO
[2021-04-17 21:00] VITALS: BP 128/64; PULSE 88; TEMP 98.3
== END 2021-04-17 21:05 | disposition home or self-care (01) ==
LOC: COL.ER 19:40
DX: S61.412A Laceration without foreign body of left hand, initial encounter (principal); G35 Multiple sclerosis; W26.8XXA Contact with other sharp object(s), not elsewhere classified, initial encounter

== ENCOUNTER 2021-05-24 11:43 | Emergency (ER) | payer MEDICARE, MEDICAID ==
[~2021-05-24] VITALS: Ht 170.2 cm; Wt 74.5 kg
[2021-05-24 11:52] VITALS: BP 133/94; TEMP 98.1
[2021-05-24] MEDS ORDERED: ZOFRAN ODT4 MG PO (14:08)
[2021-05-24] MEDS ORDERED: AMOXICILLIN 50500 MG PO (14:08)
[2021-05-24 14:26] VITALS: PULSE 86
== END 2021-05-24 14:31 | disposition home or self-care (01) ==
LOC: COL.ER 11:43
DX: K02.9 Dental caries, unspecified (principal); R11.2 Nausea with vomiting, unspecified

== ENCOUNTER 2022-07-21 09:26 | Emergency (ER) | payer MEDICARE, MEDICAID ==
[~2022-07-21] VITALS: Ht 172.7 cm; Wt 75.0 kg
[~2022-07-21 09:26] MED LIST changes: +AMOXICILLIN 50500 MG PO
[2022-07-21 09:42] VITALS: BP 147/100; TEMP 97.3
[2022-07-21] MEDS ORDERED: ZOFRAN ODT4 MG PO (10:27)
[2022-07-21] MEDS ORDERED: NORCO 325 MG-51 TAB PO (10:27)
[2022-07-21 10:41] VITALS: PULSE 86
== END 2022-07-21 10:44 | disposition home or self-care (01) ==
LOC: COL.ER 09:26
DX: S06.0X0A Concussion without loss of consciousness, initial encounter (principal); W22.8XXA Striking against or struck by other objects, initial encounter; W18.30XA Fall on same level, unspecified, initial encounter

== ENCOUNTER 2023-02-16 11:42 | Emergency (ER) | payer MEDICARE, MEDICAID ==
[~2023-02-16] VITALS: Ht 170.2 cm; Wt 85.9 kg
[2023-02-16 13:01] LABS: BASO % 0.5 % (0.0-2.0); EOS % 0.3 % (0.0-4.0); HEMATOCRIT 44.9 % (42.0-52.0); HEMOGLOBIN 16.2 g/dl (13.5-18.0); LYMPH # 1.9 K/mm3 (1.2-3.4); LYMPH % 21.1 % (20.0-51.0); MEAN CELL VOLUME 88 fl (80.0-100.0); MEAN CORPUSCULAR HEMOGLOBIN 32 pg (27-31); MEAN CORPUSCULAR HGB CONC 36 g/dl (33.0-37.0); MEAN PLATELET VOLUME 10.3 fl (7.4-10.4); MONO # 0.8 K/mm3 (0.1-0.6); MONO % 8.9 % (1.7-9.3); PLATELET COUNT 340 K/mm3 (130-400); RED BLOOD COUNT 5.08 M/mm3 (4.20-5.60); REDCELL DISTRIBUTION WIDTH-CV 12.3 % (11.5-14.5)
[2023-02-16 13:17] LABS: ALBUMIN 4.9 gm/dL (3.5-5.0); BILIRUBIN,TOTAL 1.1 mg/dL (0.2-1.2); CALCIUM 10.3 mg/dL (8.4-10.2); CREATININE, serum 0.89 mg/dL (0.72-1.25); POTASSIUM 3.5 mmol/L (3.5-4.5); TOTAL PROTEIN 8.1 gm/dL (6.2-8.1)
[2023-02-16 13:23] LABS: TROPONIN-I 0.013 ng/mL (0.00-0.033)
[2023-02-16 14:43] VITALS: BP 128/78; PULSE 105; TEMP 98
== END 2023-02-16 14:45 | disposition home or self-care (01) ==
LOC: COL.ER 11:42
PROVIDERS: Personal Emergency Response Attendant
DX: R06.00 Dyspnea, unspecified (principal); K76.89 Other specified diseases of liver; R00.0 Tachycardia, unspecified
CPT/HCPCS: J1200; J2405; J2930; J7030; Q9967

== ENCOUNTER 2024-02-14 18:30 | Emergency (ER) | payer MEDICARE, MEDICAID ==
[~2024-02-14] VITALS: Ht 172.7 cm; Wt 79.5 kg
[~2024-02-14 18:30] MED LIST changes: +00186-0370-20 IH; +COZAAR100 MG PO; +CYMBALTA 30MG30 MG PO; +DAZIDOX10 MG PO; +IPRATROPIUM BROM3 M1 IH; +NURTEC ODT75 MG PO; +PERCOCET 325 MG1 TA2 PO; +PREDNISONE20 MG PO; +TOPROL XL 50MG50 MG PO; +VITAMIN D 50,1.25 MG PO
[2024-02-14] MEDS ORDERED: Ibuprofen 400 MG TAB PO ONE (18:45)
[2024-02-14 20:14] VITALS: BP 133/79; PULSE 82; TEMP 98.7
== END 2024-02-14 20:14 | disposition home or self-care (01) ==
LOC: COL.ER 18:30
DX: S63.501A Unspecified sprain of right wrist, initial encounter (principal); W18.30XA Fall on same level, unspecified, initial encounter

== ENCOUNTER 2024-04-01 05:26 | Emergency (ER) | payer MEDICARE, MEDICAID ==
[~2024-04-01] VITALS: Ht 172.7 cm; Wt 86.4 kg
[2024-04-01 05:30] VITALS: TEMP 98
[2024-04-01] MEDS ORDERED: NS 1,000 ML IV ONE (08:00)
[2024-04-01] MEDS ORDERED: Ondansetron 4 MG/2 ML VIAL IV PRN (08:00)
[2024-04-01] MEDS ORDERED: LORazepam 2 MG/ML 1 ML VIAL IV ONE (08:00)
[2024-04-01 08:59] LABS: BASO % 0.3 % (0.0-2.0); EOS % 0.3 % (0.0-4.0); HEMATOCRIT 44.2 % (42.0-52.0); HEMOGLOBIN 14.9 g/dl (13.5-18.0); MEAN CELL VOLUME 92 fl (80.0-100.0); MEAN CORPUSCULAR HEMOGLOBIN 31 pg (27-31); MEAN CORPUSCULAR HGB CONC 34 g/dl (33.0-37.0); MEAN PLATELET VOLUME 10.1 fl (7.4-10.4); MONO # 0.5 K/mm3 (0.1-0.6); MONO % 5.1 % (1.7-9.3); PLATELET COUNT 344 K/mm3 (130-400); RED BLOOD COUNT 4.83 M/mm3 (4.20-5.60); REDCELL DISTRIBUTION WIDTH-CV 12.8 % (11.5-14.5)
[2024-04-01 09:15] LABS: ALBUMIN 4.2 g/dL (3.5-5.0); BILIRUBIN,TOTAL 0.7 mg/dL (0.2-1.2); CALCIUM 10.2 mg/dL (8.4-10.2); CREATININE, serum 0.75 mg/dL (0.72-1.25); POTASSIUM 3.7 mEq/L (3.5-4.5); TOTAL PROTEIN 7.4 g/dl (6.2-8.1)
[2024-04-01 12:06] VITALS: BP 124/81; PULSE 90
== END 2024-04-01 11:40 | disposition home or self-care (01) ==
LOC: COL.ER 05:26
PROVIDERS: Personal Emergency Response Attendant
DX: S09.90XA Unspecified injury of head, initial encounter (principal); R55 Syncope and collapse; R06.02 Shortness of breath; M62.838 Other muscle spasm; X58.XXXA Exposure to other specified factors, initial encounter
CPT/HCPCS: J2060; J2405; J7030

== ENCOUNTER 2024-05-08 12:34 | Emergency (ER) | payer MEDICARE, MEDICAID ==
[~2024-05-08] VITALS: Ht 172.7 cm; Wt 73.6 kg
[2024-05-08 12:36] VITALS: BP 158/98; PULSE 86; TEMP 98.5
== END 2024-05-08 13:10 | disposition left against medical advice (07) ==
LOC: COL.ER 12:34
DX: S61.210A Laceration without foreign body of right index finger without damage to nail, initial encounter (principal); W26.8XXA Contact with other sharp object(s), not elsewhere classified, initial encounter; Y93.G3 Activity, cooking and baking

== ENCOUNTER 2024-05-08 13:32 | Emergency (ER) | payer MEDICARE, MEDICAID ==
[~2024-05-08] VITALS: Ht 172.7 cm; Wt 73.6 kg
[2024-05-08 13:42] VITALS: BP 143/78; TEMP 98.4
[2024-05-08] MEDS ORDERED: Ibuprofen 600 MG TAB PO ONE (16:30)
[2024-05-08 16:52] VITALS: PULSE 81
== END 2024-05-08 16:52 | disposition home or self-care (01) ==
LOC: COL.ER 13:32
DX: S61.210A Laceration without foreign body of right index finger without damage to nail, initial encounter (principal); W26.8XXA Contact with other sharp object(s), not elsewhere classified, initial encounter; Y93.G9 Activity, other involving cooking and grilling

== ENCOUNTER 2024-05-24 18:53 | Emergency (ER) | payer MEDICARE, MEDICAID ==
[~2024-05-24] VITALS: Ht 172.7 cm; Wt 73.6 kg
[2024-05-24 18:59] VITALS: TEMP 98.5
[2024-05-24] MEDS ORDERED: Albuterol/Ipratropium 3 MG-0.5 MG/3 ML Neb Soln IH ONE (19:15)
[2024-05-24] MEDS ORDERED: predniSONE 20 MG TAB PO ONE (19:15)
[2024-05-24] MEDS ORDERED: PREDNISONE20 MG PO (19:36)
[2024-05-24 19:48] VITALS: BP 122/85; PULSE 86
== END 2024-05-24 19:48 | disposition home or self-care (01) ==
LOC: COL.ER 18:53
DX: J45.909 Unspecified asthma, uncomplicated (principal)
CPT/HCPCS: J7512

== ENCOUNTER 2024-06-11 07:12 | Emergency (ER) | payer MEDICARE, MEDICAID ==
[~2024-06-11] VITALS: Ht 172.7 cm; Wt 72.7 kg
[2024-06-11 07:18] VITALS: TEMP 98.1
[2024-06-11] MEDS ORDERED: Ketorolac 30 MG/ML VIAL IV ONE (07:45)
[2024-06-11] MEDS ORDERED: Ondansetron 4 MG/2 ML VIAL IV ONE (07:45)
[2024-06-11 08:04] LABS: BASO % 0.4 % (0.0-2.0); EOS % 0.1 % (0.0-4.0); GRAN # 9.3 K/mm3 (1.4-6.5); GRAN % 84.2 % (42.2-75.2); HEMATOCRIT 47.4 % (42.0-52.0); HEMOGLOBIN 16.4 g/dl (13.5-18.0); LYMPH # 1.1 K/mm3 (1.2-3.4); LYMPH % 10.2 % (20.0-51.0); MEAN CELL VOLUME 88 fl (80.0-100.0); MEAN CORPUSCULAR HEMOGLOBIN 31 pg (27-31); MEAN CORPUSCULAR HGB CONC 35 g/dl (33.0-37.0); MEAN PLATELET VOLUME 9.9 fl (7.4-10.4); MONO # 0.5 K/mm3 (0.1-0.6); MONO % 4.7 % (1.7-9.3); PLATELET COUNT 371 K/mm3 (130-400); RED BLOOD COUNT 5.36 M/mm3 (4.20-5.60); REDCELL DISTRIBUTION WIDTH-CV 12.3 % (11.5-14.5)
[2024-06-11 08:35] LABS: ALBUMIN 4.9 g/dL (3.5-5.0); C-REACTIVE PROTEIN 0.21 mg/dL (0.00-0.50); CALCIUM 10.6 mg/dL (8.4-10.2); CREATININE, serum 0.78 mg/dL (0.72-1.25); MAGNESIUM 2.3 mg/dL (1.6-2.6); POTASSIUM 3.7 mEq/L (3.5-4.5); TOTAL PROTEIN 8.5 g/dl (6.2-8.1)
[2024-06-11 08:57] LABS: TSH w REFLEX 0.578 uIU/mL (0.350-4.940)
[2024-06-11 09:25] LABS: COLLECTION METHOD CLEAN CATCH
[2024-06-11 09:42] LABS: URINE APPEARANCE CLEAR (CLEAR/HAZY); URINE BLOOD TRACE (NEGATIVE); URINE COLOR YELLOW (YELLOW); URINE GLUCOSE NEGATIVE (NEGATIVE); URINE KETONE 4+ (NEGATIVE); URINE NITRATE NEGATIVE (NEGATIVE); URINE PROTEIN(semi-quant) 1+ (NEGATIVE); URINE UROBILINOGEN 0.2 E.U/dL (0.2-1.0)
[2024-06-11] MEDS ORDERED: NS 1,000 ML IV ONE (10:00)
[2024-06-11] MEDS ORDERED: Mag/Al Hydrox/Simeth Susp 30 ML CUP PO ONE (11:30)
[2024-06-11] MEDS ORDERED: Pantoprazole 40 MG in NS 10 ML IV ONE (11:30)
[2024-06-11] MEDS ORDERED: Famotidine 20 MG TAB PO ONE (11:30)
[2024-06-11] MEDS ORDERED: ZOFRAN ODT4 MG PO (11:36)
[2024-06-11 11:48] VITALS: BP 134/98; PULSE 101
== END 2024-06-11 11:58 | disposition home or self-care (01) ==
LOC: COL.ER 07:12
PROVIDERS: Emergency Medicine
DX: R25.9 Unspecified abnormal involuntary movements (principal); R11.2 Nausea with vomiting, unspecified; K21.9 Gastro-esophageal reflux disease without esophagitis; Z82.0 Family history of epilepsy and other diseases of the nervous system
CPT/HCPCS: J1885; J2405; J2470; J7030

== ENCOUNTER 2024-07-27 14:58 | Emergency (ER) | payer MEDICARE, MEDICAID ==
[~2024-07-27] VITALS: Ht 172.7 cm; Wt 70.9 kg
[2024-07-27 15:05] VITALS: TEMP 98.6
[2024-07-27] MEDS ORDERED: NS 1,000 ML IV ONE (15:15)
[2024-07-27 15:45] LABS: BASO % 0.6 % (0.0-2.0); EOS % 0.8 % (0.0-4.0); GRAN # 2.9 K/mm3 (1.4-6.5); GRAN % 59.8 % (42.2-75.2); HEMATOCRIT 43.7 % (42.0-52.0); HEMOGLOBIN 15.1 g/dl (13.5-18.0); LYMPH # 1.4 K/mm3 (1.2-3.4); LYMPH % 29.7 % (20.0-51.0); MEAN CELL VOLUME 91 fl (80.0-100.0); MEAN CORPUSCULAR HEMOGLOBIN 31 pg (27-31); MEAN CORPUSCULAR HGB CONC 35 g/dl (33.0-37.0); MEAN PLATELET VOLUME 10.5 fl (7.4-10.4); MONO # 0.4 K/mm3 (0.1-0.6); MONO % 9.1 % (1.7-9.3); PLATELET COUNT 342 K/mm3 (130-400); RED BLOOD COUNT 4.82 M/mm3 (4.20-5.60); REDCELL DISTRIBUTION WIDTH-CV 12.5 % (11.5-14.5)
[2024-07-27 16:04] LABS: ALANINE AMINOTRANSFERASE 196 U/L (0-55); ALKALINE PHOSPHATASE 58 U/L (40-150); ANION GAP 11 mmol/L (7-16); AST,SGOT 153 U/L (5-34); BILIRUBIN,TOTAL 0.5 mg/dL (0.2-1.2); BLOOD UREA NITROGEN 11 mg/dL (9-21); CALCIUM 9.5 mg/dL (8.4-10.2); CHLORIDE 109 mEq/L (98-107); CREATININE, serum 0.68 mg/dL (0.72-1.25); GLUCOSE 95 mg/dL (70-99); POTASSIUM 3.7 mEq/L (3.5-4.5); SODIUM 143 mEq/L (136-145); TOTAL PROTEIN 6.7 g/dl (6.2-8.1)
[2024-07-27 16:12] LABS: TROPONIN-I < 0.010 ng/mL (0.00-0.033)
[2024-07-27 18:15] VITALS: BP 126/91; PULSE 83
== END 2024-07-27 18:15 | disposition home or self-care (01) ==
LOC: COL.ER 14:58
PROVIDERS: Emergency Medicine
DX: I48.91 Unspecified atrial fibrillation (principal); I48.92 Unspecified atrial flutter
CPT/HCPCS: J7030